=== PATIENT | female | born 1935 | race Caucasian/White ===

== ENCOUNTER 2021-04-10 16:18 | Inpatient (IN) ==
[2021-04-10] MEDS ORDERED: Naloxone 0.4 MG/ML INJ IVP PRN (22:09)
[2021-04-10] MEDS ORDERED: Acetaminophen 325 MG TABLET PO PRN (22:09)
[2021-04-11] MEDS ORDERED: 0.9 % Sodium Chloride 1,000 ML IVC ONE (03:29)
[2021-04-11] MEDS ORDERED: Perflutren Lipid Microsphere 1.3 ML in 0.9 % Sodium Chloride 8.7 ML IVP PRN (04:48)
[2021-04-11] MEDS ORDERED: Azithromycin 500 MG in D5% in Water 250 ML IVPB SCH (05:00)
[2021-04-11] MEDS: *HR* Heparin 5,000 UNIT/ML VIAL SQ SCH ×2 (06:04→16:50)
[2021-04-11] MEDS ORDERED: Cefepime HCl 2,000 MG in 0.9 % Sodium Chloride Mini Bag 100 ML IVPB SCH (08:00)
[2021-04-11 11:02] LABS: Basophils # 0.1 K/mcL (0.0-0.2); Basophils % 0.6 %; Eosinophils # 0.2 K/mcL (0.0-0.6); Hematocrit 43.6 % (35.3-44.9); Hemoglobin 13.3 g/dL (11.5-15.4); Lymphocytes # 1.3 K/mcL (0.6-4.6); Lymphocytes % 12.6 %; Mean Corpuscular HGB Conc 30.5 g/dL (31.6-35.5); Mean Corpuscular Volume 95.2 fL (83.0-100.0); Mean Platelet Volume 9.7 fL (9.4-12.4); Monocytes % 9.4 %; Neutrophils # 7.8 K/mcL (1.6-8.9); Platelet Count 217 K/mcL (140-400); Red Blood Count 4.58 M/mcL (3.82-4.97); Red Cell Distribution Width 16.3 % (11.5-14.5); Segmented Neutrophils % 73.4 %; White Blood Count 10.6 K/mcL (4.3-11.1)
[2021-04-11 11:26] LABS: Bilirubin,Total 0.5 mg/dL (0.3-1.0); Calcium 8.7 mg/dL (8.6-10.3); Globulin 3.1 g/dL (2.4-3.5); Magnesium 1.7 mg/dL (1.6-2.6); Phosphorous 4.3 mg/dL (2.7-4.5); Potassium 4.6 mEq/L (3.5-5.1); Total Protein 6.1 g/dL (6.4-8.9); Troponin I 0.06 ng/mL (< 0.04)
[2021-04-11] MEDS ORDERED: Azithromycin 200 MG/5 ML UDC PO ONE (12:30)
[2021-04-11] MEDS ORDERED: Cefdinir 125 MG/5 ML UDC PO SCH (12:30)
[2021-04-11] MEDS ORDERED: 0.9 % Sodium Chloride 250 ML IVC ONE (21:07)
[2021-04-12] MEDS ORDERED: 0.9 % Sodium Chloride 1,000 ML IVC ONE (00:28)
[2021-04-12] MEDS: *HR* Heparin 5,000 UNIT/ML VIAL SQ SCH ×2 (05:59→17:57)
[2021-04-12 07:53] LABS: Hematocrit 38.8 % (35.3-44.9); Hemoglobin 11.8 g/dL (11.5-15.4); Mean Corpuscular HGB Conc 30.4 g/dL (31.6-35.5); Mean Corpuscular Hemoglobin 29.3 pg (28.0-33.3); Mean Corpuscular Volume 96.3 fL (83.0-100.0); Mean Platelet Volume 10.3 fL (9.4-12.4); Platelet Count 188 K/mcL (140-400); Red Blood Count 4.03 M/mcL (3.82-4.97); Red Cell Distribution Width 16.5 % (11.5-14.5); White Blood Count 7.5 K/mcL (4.3-11.1)
[2021-04-12] MEDS ORDERED: Piperacillin/Tazobactam 3.375 GM in 0.9 % Sodium Chloride Mini Bag 100 ML IVPB SCH (08:00)
[2021-04-12 08:10] LABS: Albumin 2.7 g/dL (3.5-5.7); Albumin/Globulin Ratio 0.9 (1.1-2.2); Bilirubin,Total 0.4 mg/dL (0.3-1.0); Calcium 8.1 mg/dL (8.6-10.3); Globulin 2.9 g/dL (2.4-3.5); Potassium 3.6 mEq/L (3.5-5.1); Total Protein 5.6 g/dL (6.4-8.9)
[2021-04-12] MEDS: 0.9 % Sodium Chloride 1,000 ML IVC SCH (10:21)
[2021-04-12] MEDS: Piperacillin/Tazobactam 3.375 GM in 0.9 % Sodium Chloride Mini Bag 100 ML IVPB SCH (19:56)
[2021-04-13 02:44] LABS: Hematocrit 36.3 % (35.3-44.9); Hemoglobin 11.3 g/dL (11.5-15.4); Mean Corpuscular HGB Conc 31.1 g/dL (31.6-35.5); Mean Corpuscular Hemoglobin 29.9 pg (28.0-33.3); Mean Platelet Volume 9.9 fL (9.4-12.4); Platelet Count 159 K/mcL (140-400); Red Blood Count 3.78 M/mcL (3.82-4.97); Red Cell Distribution Width 16.8 % (11.5-14.5); White Blood Count 7.4 K/mcL (4.3-11.1)
[2021-04-13 03:00] LABS: Albumin 2.6 g/dL (3.5-5.7); Bilirubin,Total 0.4 mg/dL (0.3-1.0); Calcium 8.1 mg/dL (8.6-10.3); Globulin 2.7 g/dL (2.4-3.5); Potassium 3.5 mEq/L (3.5-5.1); Total Protein 5.3 g/dL (6.4-8.9)
[2021-04-13] MEDS: *HR* Heparin 5,000 UNIT/ML VIAL SQ SCH ×2 (06:07→16:46)
[2021-04-13] MEDS: Aspirin Enteric Coated 81 MG Tablet PO SCH (07:50)
[2021-04-13] MEDS: 0.9 % Sodium Chloride 1,000 ML IVC SCH (07:54)
[2021-04-13] MEDS: Piperacillin/Tazobactam 3.375 GM in 0.9 % Sodium Chloride Mini Bag 100 ML IVPB SCH ×2 (09:23→20:03)
[2021-04-13] MEDS: Melatonin 3 MG TABLET PO PRN (20:21)
[2021-04-13 22:49] LABS: ABG Base Excess -4 mEq/L (-2 to 3); ABG HCO3 26 mEq/L (21-27); ABG Oxygen Saturation 80 % (95-98); ABG PCO2 72 mmHg (35-45); ABG PH 7.17 pH Units (7.32-7.45); ABG PO2 57 mmHg (85-104); ABG TCO2 29 mEq/L (20-26)
[2021-04-13] MEDS ORDERED: *HR* Metoprolol 5 MG/5 ML VIAL IVP ONE (23:15)
[2021-04-14 00:02] LABS: ABG Base Excess -3 mEq/L (-2 to 3); ABG HCO3 25 mEq/L (21-27); ABG Oxygen Saturation 100 % (95-98); ABG PCO2 53 mmHg (35-45); ABG PH 7.28 pH Units (7.32-7.45); ABG PO2 235 mmHg (85-104); ABG TCO2 26 mEq/L (20-26); Blood Gas Modality BiLevel; Blood Gas VT 450 cc
[2021-04-14] MEDS: 0.9 % Sodium Chloride 1,000 ML IVC SCH (04:46)
[2021-04-14] MEDS: *HR* Heparin 5,000 UNIT/ML VIAL SQ SCH ×2 (04:49→16:10)
[2021-04-14 05:03] LABS: Albumin 2.7 g/dL (3.5-5.7); Albumin/Globulin Ratio 0.9 (1.1-2.2); Bilirubin,Total 0.5 mg/dL (0.3-1.0); Calcium 8.3 mg/dL (8.6-10.3); Globulin 2.9 g/dL (2.4-3.5); Potassium 3.7 mEq/L (3.5-5.1); Total Protein 5.6 g/dL (6.4-8.9)
[2021-04-14 05:08] LABS: Hematocrit 38.6 % (35.3-44.9); Hemoglobin 12.1 g/dL (11.5-15.4); Mean Corpuscular HGB Conc 31.3 g/dL (31.6-35.5); Mean Corpuscular Hemoglobin 30.1 pg (28.0-33.3); Platelet Count 154 K/mcL (140-400); Red Blood Count 4.02 M/mcL (3.82-4.97); Red Cell Distribution Width 17.2 % (11.5-14.5)
[2021-04-14 05:09] LABS: Mean Platelet Volume 9.9 fL (9.4-12.4)
[2021-04-14] MEDS: Aspirin Enteric Coated 81 MG Tablet PO SCH (07:58)
[2021-04-14] MEDS: Piperacillin/Tazobactam 3.375 GM in 0.9 % Sodium Chloride Mini Bag 100 ML IVPB SCH ×2 (07:58→21:11)
[2021-04-14] MEDS: Ondansetron 4 MG/2 ML VIAL IVP PRN ×2 (12:45→14:31)
[2021-04-14 13:04] LABS: ABG Base Excess -2 mEq/L (-2 to 3); ABG HCO3 26 mEq/L (21-27); ABG Oxygen Saturation 100 % (95-98); ABG PCO2 60 mmHg (35-45); ABG PH 7.25 pH Units (7.32-7.45); ABG PO2 229 mmHg (85-104); ABG TCO2 28 mEq/L (20-26)
[2021-04-14 15:11] LABS: ABG Base Excess -3 mEq/L (-2 to 3); ABG HCO3 24 mEq/L (21-27); ABG Oxygen Saturation 99 % (95-98); ABG PCO2 50 mmHg (35-45); ABG PO2 180 mmHg (85-104); ABG TCO2 26 mEq/L (20-26); Blood Gas VT 500 cc
[2021-04-14] MEDS ORDERED: Ipratropium/Albuterol Neb 3 ML IH PRN (15:54)
[2021-04-14] MEDS ORDERED: Albuterol 2.5 MG/3 ML NEBULIZER IH PRN (16:10)
[2021-04-14] MEDS: Ipratropium/Albuterol Neb 3 ML IH SCH ×2 (16:19→22:53)
[2021-04-15 02:52] LABS: Hematocrit 36.8 % (35.3-44.9); Hemoglobin 11.4 g/dL (11.5-15.4); Mean Corpuscular Hemoglobin 29.7 pg (28.0-33.3); Mean Corpuscular Volume 95.8 fL (83.0-100.0); Mean Platelet Volume 10.6 fL (9.4-12.4); Platelet Count 119 K/mcL (140-400); Red Blood Count 3.84 M/mcL (3.82-4.97); Red Cell Distribution Width 17.3 % (11.5-14.5); White Blood Count 8.5 K/mcL (4.3-11.1)
[2021-04-15 02:53] LABS: Basophils % 0.3 %; Eosinophils # 0.1 K/mcL (0.0-0.6); Hematocrit 36.3 % (35.3-44.9); Hemoglobin 11.3 g/dL (11.5-15.4); Immature Granulocytes % 1.1 % (0-4); Lymphocytes # 1.4 K/mcL (0.6-4.6); Mean Corpuscular HGB Conc 31.1 g/dL (31.6-35.5); Mean Corpuscular Hemoglobin 30.1 pg (28.0-33.3); Mean Corpuscular Volume 96.5 fL (83.0-100.0); Mean Platelet Volume 10.1 fL (9.4-12.4); Monocytes # 0.9 K/mcL (0.0-1.3); Monocytes % 9.8 %; Neutrophils # 6.3 K/mcL (1.6-8.9); Platelet Count 113 K/mcL (140-400); Red Blood Count 3.76 M/mcL (3.82-4.97); Red Cell Distribution Width 17.4 % (11.5-14.5); Segmented Neutrophils % 71.8 %; White Blood Count 8.8 K/mcL (4.3-11.1)
[2021-04-15 03:14] LABS: Albumin 2.6 g/dL (3.5-5.7); Bilirubin,Total 0.5 mg/dL (0.3-1.0); Calcium 8.3 mg/dL (8.6-10.3); Globulin 2.7 g/dL (2.4-3.5); Potassium 3.5 mEq/L (3.5-5.1); Total Protein 5.3 g/dL (6.4-8.9)
[2021-04-15] MEDS: Ipratropium/Albuterol Neb 3 ML IH SCH ×4 (04:00→21:49)
[2021-04-15] MEDS: *HR* Heparin 5,000 UNIT/ML VIAL SQ SCH ×2 (05:56→16:47)
[2021-04-15] MEDS: Piperacillin/Tazobactam 3.375 GM in 0.9 % Sodium Chloride Mini Bag 100 ML IVPB SCH (07:40)
[2021-04-15] MEDS: Aspirin Enteric Coated 81 MG Tablet PO SCH (07:40)
[2021-04-15] MEDS ORDERED: Haloperidol Lactate 5 MG/ML VIAL IVP ONE (10:47)
[2021-04-16] MEDS: Ipratropium/Albuterol Neb 3 ML IH SCH ×4 (03:52→22:05)
[2021-04-16 06:25] LABS: Basophils % 0.5 %; Eosinophils # 0.2 K/mcL (0.0-0.6); Eosinophils % 2.7 %; Hematocrit 36.4 % (35.3-44.9); Hemoglobin 11.4 g/dL (11.5-15.4); Lymphocytes % 23.4 %; Mean Corpuscular HGB Conc 31.3 g/dL (31.6-35.5); Mean Corpuscular Hemoglobin 30.2 pg (28.0-33.3); Mean Corpuscular Volume 96.6 fL (83.0-100.0); Mean Platelet Volume 10.3 fL (9.4-12.4); Monocytes # 0.9 K/mcL (0.0-1.3); Monocytes % 9.8 %; Neutrophils # 5.4 K/mcL (1.6-8.9); Platelet Count 116 K/mcL (140-400); Red Blood Count 3.77 M/mcL (3.82-4.97); Red Cell Distribution Width 18.2 % (11.5-14.5); Segmented Neutrophils % 62.6 %; White Blood Count 8.6 K/mcL (4.3-11.1)
[2021-04-16] MEDS: *HR* Heparin 5,000 UNIT/ML VIAL SQ SCH ×2 (06:26→17:08)
[2021-04-16 06:45] LABS: Albumin 2.7 g/dL (3.5-5.7); Bilirubin,Total 0.5 mg/dL (0.3-1.0); Calcium 8.2 mg/dL (8.6-10.3); Globulin 2.8 g/dL (2.4-3.5); Potassium 3.3 mEq/L (3.5-5.1); Total Protein 5.5 g/dL (6.4-8.9)
[2021-04-16] MEDS: Piperacillin/Tazobactam 3.375 GM in 0.9 % Sodium Chloride Mini Bag 100 ML IVPB SCH ×3 (07:34→20:35)
[2021-04-16] MEDS: Aspirin Enteric Coated 81 MG Tablet PO SCH (08:02)
[2021-04-16] MEDS ORDERED: Potassium Chloride Elixir 20 MEQ/15 ML UDC GTUBE ONE (08:28)
[2021-04-16] MEDS ORDERED: D5% in 0.9% NACL 1,000 ML IVC SCH (08:30)
[2021-04-16] MEDS: D5% in Water 1,000 ML IVC SCH (10:06)
[2021-04-16 10:20] LABS: ABG Base Excess -3 mEq/L (-2 to 3); ABG HCO3 24 mEq/L (21-27); ABG Oxygen Saturation 95 % (95-98); ABG PCO2 46 mmHg (35-45); ABG PH 7.32 pH Units (7.32-7.45); ABG PO2 80 mmHg (85-104); ABG TCO2 25 mEq/L (20-26); Blood Gas Modality avaps; Blood Gas VT 500 cc
[2021-04-16 19:39] LABS: Amphetamine Screen,Urine Negative ng/mL (Cutoff=1000); Barbiturate Screen,Urine Negative ng/mL (Cutoff=200); Benzodiazepines Screen,Urine Negative ng/mL (Cutoff=200); Cannabinoid Screen,Urine Negative ng/mL (Cutoff = 50); Cocaine Screen,Urine Negative ng/mL (Cutoff= 300); Opiate Screen,Urine Negative ng/mL (Cutoff=300); Phencyclidine Screen,Urine Negative ng/mL (Cutoff=25)
[2021-04-17] MEDS: D5% in Water 1,000 ML IVC SCH (01:22)
[2021-04-17] MEDS: Ipratropium/Albuterol Neb 3 ML IH SCH ×4 (04:05→21:57)
[2021-04-17] MEDS: *HR* Heparin 5,000 UNIT/ML VIAL SQ SCH ×2 (05:28→17:48)
[2021-04-17 07:51] LABS: Hematocrit 34.8 % (35.3-44.9); Hemoglobin 10.9 g/dL (11.5-15.4); Mean Corpuscular HGB Conc 31.3 g/dL (31.6-35.5); Mean Corpuscular Hemoglobin 29.9 pg (28.0-33.3); Mean Corpuscular Volume 95.6 fL (83.0-100.0); Mean Platelet Volume 10.5 fL (9.4-12.4); Platelet Count 123 K/mcL (140-400); Red Blood Count 3.64 M/mcL (3.82-4.97); Red Cell Distribution Width 18.1 % (11.5-14.5)
[2021-04-17 08:20] LABS: Calcium 8.3 mg/dL (8.6-10.3); Potassium 3.3 mEq/L (3.5-5.1)
[2021-04-17] MEDS: Piperacillin/Tazobactam 3.375 GM in 0.9 % Sodium Chloride Mini Bag 100 ML IVPB SCH ×2 (09:50→17:47)
[2021-04-17] MEDS: Aspirin Enteric Coated 81 MG Tablet PO SCH (10:10)
[2021-04-17] MEDS: Melatonin 3 MG TABLET PO PRN (19:59)
[2021-04-18] MEDS: Piperacillin/Tazobactam 3.375 GM in 0.9 % Sodium Chloride Mini Bag 100 ML IVPB SCH ×3 (00:47→18:49)
[2021-04-18] MEDS: Ipratropium/Albuterol Neb 3 ML IH SCH ×4 (03:36→21:48)
[2021-04-18 04:07] LABS: Albumin 2.5 g/dL (3.5-5.7); Bilirubin,Total 0.5 mg/dL (0.3-1.0); Calcium 7.9 mg/dL (8.6-10.3); Globulin 2.6 g/dL (2.4-3.5); Magnesium 1.5 mg/dL (1.6-2.6); Potassium 3.7 mEq/L (3.5-5.1); Total Protein 5.1 g/dL (6.4-8.9)
[2021-04-18 04:12] LABS: Hematocrit 35.6 % (35.3-44.9); Hemoglobin 10.5 g/dL (11.5-15.4); Mean Corpuscular HGB Conc 29.5 g/dL (31.6-35.5); Mean Corpuscular Volume 98.3 fL (83.0-100.0); Mean Platelet Volume 10.4 fL (9.4-12.4); Platelet Count 128 K/mcL (140-400); Red Blood Count 3.62 M/mcL (3.82-4.97); Red Cell Distribution Width 18.4 % (11.5-14.5); White Blood Count 6.9 K/mcL (4.3-11.1)
[2021-04-18] MEDS: *HR* Heparin 5,000 UNIT/ML VIAL SQ SCH ×2 (06:02→18:07)
[2021-04-18] MEDS: D5% in Water 1,000 ML IVC SCH ×3 (06:23→16:55)
[2021-04-18] MEDS: Aspirin 81 MG TAB.CHEW PO SCH (10:25)
[2021-04-18 11:17] LABS: ABG Base Excess -4 mEq/L (-2 to 3); ABG HCO3 22 mEq/L (21-27); ABG Oxygen Saturation 97 % (95-98); ABG PCO2 44 mmHg (35-45); ABG PH 7.32 pH Units (7.32-7.45); ABG PO2 104 mmHg (85-104); ABG TCO2 24 mEq/L (20-26); Blood Gas Modality AVAPS; Blood Gas VT 500 cc
[2021-04-19] MEDS: Piperacillin/Tazobactam 3.375 GM in 0.9 % Sodium Chloride Mini Bag 100 ML IVPB SCH ×3 (00:07→16:38)
[2021-04-19] MEDS: D5% in Water 1,000 ML IVC SCH ×2 (00:07→03:52)
[2021-04-19 03:44] LABS: Mean Corpuscular HGB Conc 30.3 g/dL (31.6-35.5); Mean Corpuscular Hemoglobin 29.2 pg (28.0-33.3); Mean Corpuscular Volume 96.5 fL (83.0-100.0); Mean Platelet Volume 10.8 fL (9.4-12.4); Platelet Count 107 K/mcL (140-400); Red Blood Count 3.42 M/mcL (3.82-4.97); White Blood Count 5.7 K/mcL (4.3-11.1)
[2021-04-19] MEDS: Ipratropium/Albuterol Neb 3 ML IH SCH ×4 (03:58→21:29)
[2021-04-19 04:04] LABS: Calcium 7.4 mg/dL (8.6-10.3); Potassium 3.1 mEq/L (3.5-5.1)
[2021-04-19] MEDS: *HR* Heparin 5,000 UNIT/ML VIAL SQ SCH ×2 (04:40→16:37)
[2021-04-19] MEDS: Aspirin 81 MG TAB.CHEW PO SCH (10:27)
[2021-04-19] MEDS ORDERED: Dextrose Gel 15 GM/37.5 ML TUBE PO PRN ×2 (18:43)
[2021-04-19] MEDS: *HR* Dextrose 50 % in Water (Vial) 50 ML VIAL IVP PRN (19:23)
[2021-04-19] MEDS: D5% in Water 1,000 ML IVC PRN (22:19)
[2021-04-20] MEDS: Piperacillin/Tazobactam 3.375 GM in 0.9 % Sodium Chloride Mini Bag 100 ML IVPB SCH ×3 (00:41→17:08)
[2021-04-20] MEDS: Ondansetron 4 MG/2 ML VIAL IVP PRN (03:16)
[2021-04-20] MEDS: Ipratropium/Albuterol Neb 3 ML IH SCH ×4 (03:37→22:22)
[2021-04-20] MEDS: *HR* Heparin 5,000 UNIT/ML VIAL SQ SCH ×2 (05:22→17:09)
[2021-04-20 05:39] LABS: Basophils % 0.3 %; Eosinophils # 0.2 K/mcL (0.0-0.6); Eosinophils % 3.5 %; Hematocrit 36.1 % (35.3-44.9); Hemoglobin 11.2 g/dL (11.5-15.4); Immature Granulocytes % 0.8 % (0-4); Lymphocytes # 0.9 K/mcL (0.6-4.6); Mean Corpuscular Hemoglobin 29.6 pg (28.0-33.3); Mean Corpuscular Volume 95.5 fL (83.0-100.0); Monocytes # 0.5 K/mcL (0.0-1.3); Monocytes % 8.1 %; Neutrophils # 4.8 K/mcL (1.6-8.9); Platelet Count 136 K/mcL (140-400); Red Blood Count 3.78 M/mcL (3.82-4.97); Red Cell Distribution Width 17.9 % (11.5-14.5); Segmented Neutrophils % 73.3 %; White Blood Count 6.6 K/mcL (4.3-11.1)
[2021-04-20 05:54] LABS: Calcium 7.5 mg/dL (8.6-10.3); Potassium 3.5 mEq/L (3.5-5.1)
[2021-04-20] MEDS ORDERED: Haloperidol Lactate 5 MG/ML VIAL IVP ONE ×3 (07:33→21:05)
[2021-04-20] MEDS: Aspirin 81 MG TAB.CHEW PO SCH (08:25)
[2021-04-20] MEDS ORDERED: Calcium Gluconate 1gm/50mL 1 GM/50 ML BAG IVPB ONE (08:36)
[2021-04-20] MEDS: D5% in Water 1,000 ML IVC PRN (17:24)
[2021-04-20 18:05] LABS: Folate 6.6 ng/mL (3.0-16.0)
[2021-04-21] MEDS: Piperacillin/Tazobactam 3.375 GM in 0.9 % Sodium Chloride Mini Bag 100 ML IVPB SCH ×3 (00:27→17:52)
[2021-04-21] MEDS: D5% in Water 1,000 ML IVC PRN (03:21)
[2021-04-21] MEDS: Ipratropium/Albuterol Neb 3 ML IH SCH ×4 (03:33→21:54)
[2021-04-21 05:01] LABS: Hematocrit 34.6 % (35.3-44.9); Hemoglobin 10.7 g/dL (11.5-15.4); Mean Corpuscular HGB Conc 30.9 g/dL (31.6-35.5); Mean Corpuscular Hemoglobin 29.2 pg (28.0-33.3); Mean Corpuscular Volume 94.3 fL (83.0-100.0); Mean Platelet Volume 10.6 fL (9.4-12.4); Platelet Count 122 K/mcL (140-400); Red Blood Count 3.67 M/mcL (3.82-4.97)
[2021-04-21] MEDS: *HR* Heparin 5,000 UNIT/ML VIAL SQ SCH ×2 (05:20→17:52)
[2021-04-21 05:21] LABS: Calcium 7.2 mg/dL (8.6-10.3); Magnesium 1.5 mg/dL (1.6-2.6)
[2021-04-21] MEDS: Aspirin 81 MG TAB.CHEW PO SCH (08:15)
[2021-04-21] MEDS ORDERED: Potassium Chloride 40 MEQ, Lidocaine 1% 2 ML in 0.9 % Sodium Chloride 500 ML IVPB ONE (09:00)
[2021-04-21] MEDS ORDERED: Haloperidol Lactate 5 MG/ML VIAL IVP PRN (16:50)
[2021-04-21] MEDS ORDERED: Morphine Sulfate Oral CONC 10 MG/0.5 ML ORAL.SYG SL PRN (16:50)
[2021-04-21] MEDS: Morphine Sulfate Oral CONC 10 MG/0.5 ML ORAL.SYG SL SCH (16:59)
[2021-04-22] MEDS: Morphine Sulfate Oral CONC 10 MG/0.5 ML ORAL.SYG SL SCH ×7 (00:18→20:16)
[2021-04-22] MEDS: Piperacillin/Tazobactam 3.375 GM in 0.9 % Sodium Chloride Mini Bag 100 ML IVPB SCH ×2 (00:20→07:22)
[2021-04-22] MEDS: Ipratropium/Albuterol Neb 3 ML IH SCH ×2 (04:10→10:56)
[2021-04-22] MEDS: *HR* Heparin 5,000 UNIT/ML VIAL SQ SCH ×2 (05:27→17:08)
[2021-04-22] MEDS: *HR* Dextrose 50 % in Water (Vial) 50 ML VIAL IVP PRN (06:09)
[2021-04-22] MEDS: Aspirin 81 MG TAB.CHEW PO SCH (07:23)
[2021-04-22] MEDS: *HR* LORazepam 2 MG/ML VIAL IVP PRN (10:59)
[2021-04-22] MEDS ORDERED: Ipratropium/Albuterol Neb 3 ML IH PRN (15:43)
[2021-04-23] MEDS: Morphine Sulfate Oral CONC 10 MG/0.5 ML ORAL.SYG SL SCH ×7 (03:55→23:58)
[2021-04-23] MEDS: *HR* Heparin 5,000 UNIT/ML VIAL SQ SCH (05:07)
[2021-04-23] MEDS: Aspirin 81 MG TAB.CHEW PO SCH (07:22)
[2021-04-23] MEDS: *HR* LORazepam 2 MG/ML VIAL IVP PRN (10:04)
[2021-04-23] MEDS: Lacri-Lube 3.5 GM TUBE LEFT EYE SCH (19:53)
[2021-04-24] MEDS: Morphine Sulfate Oral CONC 10 MG/0.5 ML ORAL.SYG SL SCH ×5 (02:26→20:38)
[2021-04-24] MEDS: Lacri-Lube 3.5 GM TUBE LEFT EYE SCH ×2 (07:13→23:31)
[2021-04-24] MEDS: Atropine 1% Opth Drops 100 DROP/5 ML BOTTLE SL PRN (07:13)
[2021-04-25] MEDS: Morphine Sulfate Oral CONC 10 MG/0.5 ML ORAL.SYG SL SCH ×6 (01:31→19:45)
[2021-04-25 07:19] VITALS: BP 110/67; TEMP 99
[2021-04-25] MEDS: Lacri-Lube 3.5 GM TUBE LEFT EYE SCH ×2 (07:28→20:00)
[2021-04-25] MEDS: Atropine 1% Opth Drops 100 DROP/5 ML BOTTLE SL PRN (07:28)
[2021-04-25] MEDS ORDERED: Acetaminophen 650 MG RECTAL SUPP RC PRN (08:15)
[2021-04-26 00:06] VITALS: PULSE 112; O2SAT 72
[2021-04-26] MEDS: Morphine Sulfate Oral CONC 10 MG/0.5 ML ORAL.SYG SL SCH (00:28)
[2021-04-26] MEDS: Atropine 1% Opth Drops 100 DROP/5 ML BOTTLE SL PRN (00:28)
== END 2021-04-26 05:53 | disposition expired | DRG 871 ==
LOC: 3BNU → SUATTDRO 18:10 → 2NNU 04-14 14:18 → 2ANU 04-23 10:49
PROVIDERS: ADMIT Internal Medicine; ATTEND Internal Medicine